=== PATIENT | female | born 1970 | race American Indian/Alaskan Native ===

== ENCOUNTER 2021-02-05 10:28 | Outpatient (CLI) | payer OTHER ==
--- NOTE | 2021-02-05 12:57 | Mammography Report ---
DIGITAL SCREENING MAMMOGRAM WITH CAD, 02/05/2021 CLINICAL INFORMATION / INDICATION: Routine screening mammography. TECHNIQUE: Digital bilateral 2D mammography was obtained in the craniocaudal and mediolateral obliqu e projections. This examination was interpreted with the benefit of Computer-Aided Detection analysis . COMPARISON: None available. FINDINGS: Breast Density: There are scattered areas of fibroglandular density. No dominant mass, suspicious calcifications, or architectural distortion in the right breast. 2 indeterminate nodular densities are seen in the upper outer left breast middle and posterior depth measuring 1.1 and 0.6 cm, respectively. No other significant abnormality of the left breast. IMPRESSION: Indeterminate left breast nodular densities. A limited left breast ultrasound and possibl e diagnostic left mammogram with spot compression views is recommended for further evaluation. Follow up recommendation: Ultrasound BI-RADS Category 0: Incomplete. Needs additional imaging evaluation and/or prior mammograms for tete conde. A "normal" or negative report should not discourage follow up or biopsy of a clinically significant f inding. A written summary of these findings will be mailed to the patient. The patient will be entered into a mammography reporting system which will generate a reminder letter for the patient's next appointmen t at the appropriate interval. The [employer] recommends yearly mammograms starting at age 40 and continuing as l meli as a woman is in good health. Breast MRI is recommended for women with an approximate 20-25% or greater lifetime risk of breast cancer, including women with a strong family history of breast or ova toño cancer or who have been treated for Hodgkin's disease. Signer Name: Devon Rivas MD Signed: 02/05/2021 12:53 PM Workstation Name: [id number]
== END 2021-02-05 10:29 | disposition home or self-care (01) ==
LOC: SPVWC 10:28
PROVIDERS: ATTEND Internal Medicine
DX: Z12.31 Encounter for screening mammogram for malignant neoplasm of breast (principal); N63.21 Unspecified lump in the left breast, upper outer quadrant
CPT/HCPCS: 77067

== ENCOUNTER 2021-03-22 13:15 | Outpatient (CLI) | payer OTHER ==
--- NOTE | 2021-03-22 14:24 | Ultrasound Report ---
ULTRASOUND BREAST LEFT LIMITED, 03/22/2021 CLINICAL INFORMATION / INDICATION: ABN MAMMO. 2 nodules are seen in the upper outer quadrant of the l eft breast on recent screening mammogram. TECHNIQUE: Targeted ultrasound evaluation was performed of the area of interest. COMPARISON: 02/05/2021 FINDINGS: There are 2 intramammary lymph nodes in the 2:00 position of the left breast located 5 cm and 7 cm fr om the nipple. The larger of the 2 is more anterior measures 8 x 3 mm and has a normal fatty hilus. T he smaller of the 2 is more posterior and measures 6 x 3 mm. This also has a fatty hilus. IMPRESSION: No sonographic evidence of malignancy. There are 2 intramammary lymph nodes which corresp ond to the nodule seen on mammography. Follow up recommendation: Routine yearly BI-RADS Category 2: Benign. A normal or "negative" report should not preclude biopsy or follow-up of a clinically suspicious find ing. Signer Name: Lalito Hoover MD Signed: 03/22/2021 2:20 PM Workstation Name: [id number]
== END 2021-03-22 13:16 | disposition home or self-care (01) ==
LOC: SPVWC 13:15
PROVIDERS: ATTEND Internal Medicine
DX: R92.8 Other abnormal and inconclusive findings on diagnostic imaging of breast (principal)